=== PATIENT | female | born 1950 | race Caucasian/White ===

== ENCOUNTER 2019-05-03 14:14 | Emergency (ER) | payer MEDICARE, OTHER ==
[2019-05-03 15:25] LABS: ABS Eosinophils 0.1 10^3/ul (0-0.6); ABS Lymphocytes 1.8 10^3/ul (1.0-4.8); ABS Monocytes 0.6 10^3/ul (0-0.8); ABS Neutrophils 1.2 10^3/ul (1.5-7.7); Eosinophil % 2.4 %; Hematocrit 37 % (35-47); Hemoglobin 12.7 g/dL (12.0-16.0); Mean Corpuscular HGB Conc 34 g/dL (31-36); Mean Corpuscular Hemoglobin 31 pg (27-31); Mean Corpuscular Volume 91 fL (80-97); Mean Platelet Volume 7.6 fL (7.4-10.4); Nucleated Red Blood Cells % 0.1; Platelet Count 285 10^3/uL (150-450); Red Blood Count 4.08 10^6 /uL (3.70-4.87); Red Cell Distribution Width 13 % (10-15); White Blood Count 3.7 10^3/uL (3.5-10.8)
--- NOTE | 2019-05-03 15:31 | ED ---
Abdominal Pain/Female - HPI Summary HPI Summary: A 69 y/o female presents to [facility] with a chief complaint of intermittent abdominal cramping for over a year. She also notes some diarrhea without blood, and bloating. She denies any weight loss, fevers, and N/V. She notes that last night she had some chills and some worsened abdominal pain located in her lower quadrants. She has an appointment with her flash welder in [place] next month but her daughter's were concerned about worsening symptoms. She denies taking any abx this past year. Her last colonoscopy was in 2012 which reportedly had no abnormalities. Last time she saw her flash welder, she did not have any of these symptoms. She denies having HTN or DM. She takes Prozac and Klonopin. - History of Current Complaint Chief Complaint: EDAbdPain Stated Complaint: ABD PAIN PER PT Time Seen by Provider: 05/03/19 14:52 Hx Obtained From: Patient Onset/Duration: Gradual Onset, Lasting Weeks, Still Present Timing: Intermittent Episode Lasting Severity Initially: Mild Severity Currently: Mild Pain Intensity: 2 Pain Scale Used: 0-10 Numeric Location: Diffuse Radiates: No Character: Cramping Aggravating Factor(s): Nothing Alleviating Factor(s): Nothing Associated Signs and Symptoms: Positive: Diarrhea. Negative: Fever, Blood in Stool, Nausea, Vomiting Allergies/Adverse Reactions: Allergies Allergy/AdvReac Type Severity Reaction Status Date / Time No Known Allergies Allergy Verified 05/03/19 14:27 Home Medications: Home Medications Fluoxetine HCl [Prozac] 30 mg PO DAILY 05/03/19 [History Confirmed 05/03/19] Spironolactone TAB* [Aldactone TAB*] 50 mg PO DAILY 05/03/19 [History Confirmed 05/03/19] clonazePAM TAB(*) [KlonoPIN TAB(*)] 0.5 mg PO TID PRN 05/03/19 [History Confirmed 05/03/19] PMH/Surg Hx/FS Hx/Imm Hx Endocrine/Hematology History: Denies: Hx Diabetes Cardiovascular History: Denies: Hx Hypertension Infectious Disease History: No Infectious Disease History: Denies: Traveled Outside the [place] in Last 30 Days - Family History Known Family History: Positive: Other - cancer, CHF - Social History Alcohol Use: None Substance Use Type: Reports: None Smoking Status (MU): Never Smoked Tobacco Review of Systems Negative: Fever Positive: Abdominal Pain, Diarrhea, Other - negative: blood in stool. Negative : Vomiting, Nausea All Other Systems Reviewed And Are Negative: Yes Physical Exam - Summary Physical Exam Summary: Constitutional: Well-developed, Well-nourished, Alert. (-) Distressed Skin: Warm, Dry HENT: Normocephalic; Atraumatic Eyes: Conjunctiva normal Neck: Musculoskeletal ROM normal neck. (-) JVD, (-) Stridor, (-) Nuchal rigidity Cardio: Rhythm regular, rate normal, Heart sounds normal; Intact distal pulses; Radial pulses are 2+ and symmetric. (-) Murmur Pulmonary/Chest wall: Effort normal. (-) Respiratory distress, (-) Wheezes, (-) Rales Abd: Soft, (-) tenderness, (-) Distension, (-) Guarding, (-) Rebound Musculoskeletal: (-) Edema Lymph: (-) Cervical adenopathy Neuro: Alert, Oriented x3 Psych: Mood and affect Normal Triage Information Reviewed: Yes Vital Signs On Initial Exam: Initial Vitals Temp Pulse Resp BP Pulse Ox 98.7 F 57 14 142/66 97 05/03/19 14:23 05/03/19 14:23 05/03/19 14:23 05/03/19 14:23 05/03/19 14:23 Vital Signs Reviewed: Yes Diagnostics - Vital Signs Vital Signs Temp Pulse Resp BP Pulse Ox 05/03/19 14:49 49 98 05/03/19 14:48 53 108/53 97 05/03/19 14:23 98.7 F 57 14 142/66 97 - Laboratory Result Diagrams: 05/03/19 15:16 05/03/19 15:16 Lab Statement: Any lab studies that have been ordered have been reviewed, and results considered in the medical decision making process. - CT abdomen/pelvis CT Interpretation Completed By: Radiologist Summary of CT Findings: 1. Artifact from under distention versus mild mural thickening suggesting. colitis in distal left and sigmoid colon. No bowel obstruction. 2. Mild chronic compression deformity of T12 vertebral body. 3. Other non-emergent findings as above. ED physician has reviewed this imaging report. Re-Evaluation - Re-Evaluation First Eval Change: Improved - CT w colitis. No infectious symptoms or white count, will give GI f/u and return precautions Abdominal Pain Fem Course/Dx - Course Course Of Treatment: 69-year-old female presents with intermittent abdominal cramping and diarrhea for several months. DDx includes IBD, celiac, infectious process, diverticulosis, diverticulitis, mass. Exam relatively unremarkable today, no rigidity or suggestions of acute surgical abd. Pt with negative Diggs 's on exam. Lipase to evaluate for pancreatitis. Will obtain cbc to assess for underlying infection. Less likely ovarian torsion given location of pain and no focal TTP on exam. Pt denies pelvic pain and vaginal discharge, also with no fever, so less likely PID. - Diagnoses Provider Diagnoses: Colitis Discharge - Sign-Out/Discharge Documenting (check all that apply): Patient Departure - DC Patient Received Moderate/Deep Sedation with Procedure: No - Discharge Plan Condition: Stable Disposition: HOME Patient Education Materials: Gastritis (DC) Referrals: Shira López MD [Medical Doctor] - Additional Instructions: You were seen in the emergency department for abdominal pain. Your CT scan show colitis. If any studies were not completed at the time of discharge you will be called with the relevant results. Please follow up with your primary care doctor in next 2-3 days and return to emergency department for worsening or concerning symptoms. - Billing Disposition and Condition Condition: STABLE Disposition: Home - Attestation Statements Document Initiated by Larry: Yes Documenting Aishaibe: Eloy Roberts Provider For Whom Larry is Documenting (Include Credential): Marco Hernandez MD Scribe Attestation: I, Eloy Roberts, scribed for Marco Hernandez MD on 05/03/19 at 2205. Scribe Documentation Reviewed: Yes Provider Attestation: The documentation as recorded by the Eloy barron accurately reflects the service I personally performed and the decisions made by me, Marco Hernandez MD Status of Scribshital Document: Viewed
[2019-05-03 15:47] LABS: Albumin 4.1 g/dL (3.2-5.2); Albumin/Globulin Ratio 1.5 (1-3); BUN/Creatinine Ratio 25.9 (8-20); C Reactive Protein 54.93 mg/L (<8.01); Calcium 9.6 mg/dL (8.6-10.3); EGFR African American 84.8 (>60); EGFR Non-African American 70.1 (>60); Globulin 2.7 g/dL (2-4); Potassium 4.5 mmol/L (3.5-5.0); Total Bilirubin 0.4 mg/dL (0.2-1.0); Total Protein 6.8 g/dL (6.4-8.9)
[2019-05-03] MEDS ORDERED: Iohexol 300* (CONTRAST) 10 ML SDV IV ONE (17:26)
[2019-05-03 19:04] VITALS: BP 115/67
== END 2019-05-03 19:04 | disposition home or self-care (01) ==
LOC: ED 14:14
DX: K52.9 Noninfective gastroenteritis and colitis, unspecified (principal); R10.9 Unspecified abdominal pain; Z79.899 Other long term (current) drug therapy
CPT/HCPCS: 36415; 74177; 80053; 83690; 83735; 84484; 85025; 86140; 99283; Q9967